=== PATIENT | male | born 1990 | race Caucasian/White ===

== ENCOUNTER 2021-01-22 13:52 | Emergency (ER) | payer OTHER ==
[~2021-01-22] VITALS: Ht 195.6 cm; Wt 147.4 kg
== END 2021-01-22 16:56 | disposition home or self-care (01) ==
LOC: ER 13:52
DX: S80.02XA Contusion of left knee, initial encounter (principal); W18.09XA Striking against other object with subsequent fall, initial encounter; Y93.89 Activity, other specified; Y92.488 Other paved roadways as the place of occurrence of the external cause; Y99.8 Other external cause status